=== PATIENT | male | born 1965 | race Caucasian/White ===

== ENCOUNTER 2019-03-31 23:10 | Emergency (ER) | payer OTHER ==
[~2019-03-31] VITALS: Ht 177.8 cm; Wt 74.0 kg
[2019-03-31 23:14] VITALS: BP 132/53
--- NOTE | 2019-04-01 00:41 | NUR ---
PT BACK IN LOBBY AT THIS TIME, AMBULATE TO ROOM 18
--- NOTE | 2019-04-01 00:41 | NUR ---
PT REPORTS SKIN POPPING HEROIN INTO RIGHT BUTTOCK X 2 WEEKS AGO. ABCESS PRESENT APPX 1 IN IN DIAMETER. PT DENIES ANY OTHER C/O AT THIS TIME. PT CONNECTED TO MONITORNG. ERP IN ROOM TO EVAL PT AT THIS TIME.
[2019-04-01] MEDS ORDERED: LIDOCAINE-MPF 1%, 5ML ONE (00:56)
[2019-04-01] MEDS ORDERED: LIDOCAINE 1%-EPI 1:100K, 20ML SQ ONE (01:00)
[2019-04-01] MEDS ORDERED: LIDOCAINE 1%-EPI 1:100K, 20ML ONE (01:02)
--- NOTE | 2019-04-01 01:13 | NUR ---
TROY ORDONEZ TO PERFORM I&D. PT UNDERSTANDS AND CONSENTS.
== END 2019-04-01 01:44 | disposition home or self-care (01) ==
LOC: ED 23:59
DX: L02.31 Cutaneous abscess of buttock (principal); L03.90 Cellulitis, unspecified; F11.10 Opioid abuse, uncomplicated; F17.210 Nicotine dependence, cigarettes, uncomplicated; Z72.9 Problem related to lifestyle, unspecified; Z75.9 Unspecified problem related to medical facilities and other health care; Z86.19 Personal history of other infectious and parasitic diseases
CPT/HCPCS: 10060; 99283